=== PATIENT | female | born 1985 | race African-American/Black ===

== ENCOUNTER 2016-07-06 09:19 | Emergency (ER) | payer OTHER ==
[2016-07-06] MEDS ORDERED: FAMOTIDINE 20 MG/50 ML IVPB 50 ML IVPB ONE (09:46)
[2016-07-06] MEDS ORDERED: SUCRALFATE 1 GM TABLET (FP) PO ONE (09:46)
[2016-07-06] MEDS ORDERED: MAG HYDROX/AL HYDROX/SIMETH 30 ML UNIT-DOSE CUP PO ONE (09:46)
[2016-07-06] MEDS ORDERED: SODIUM CHLORIDE 1,000 ML IV STA (09:46)
[2016-07-06 09:49] VITALS: BMI 35.5
--- NOTE | 2016-07-06 10:06 | PDOC ---
History of Present Illness - History of Present Illness Initial Comments: 07/06/16 10:06 The patient is a 30 year old female, with a significant past medical history of heart murmur (diagnosed a few years ago), who presents to the emergency department with a sudden onset of chest pain that woke her from sleep at 8AM this morning. The patient reports the pain was sharp, localized to her midsternal region, 4/10 in severity, and shortly after radiated to her left collarbone region. The patient states her chest pain has been constant since the onset and reports her pain is now a 6/10 in severity. She reports having tooth #18 extracted on Thursday and has been taking Clindamycin for Abx and Tylenol-Codeine for pain. She states she felt completely well yesterday and reports only eating a beef maria guadalupe and one slice of a quesadilla. She denies any alleviating or exacerbating factors of her chest pain. She denies shortness of breath, headache and dizziness. She denies fever, chills , nausea, vomit, diarrhea and constipation. She denies dysuria, frequency, urgency and hematuria. Allergies: NKDA, peanuts, mushrooms Past surgical history: Social history: denies toxic habits PCP - Dr. Diaz <Cristina Crump - Last Filed: 07/06/16 13:20> - General History Source: Patient Exam Limitations: No Limitations <Pablo Morse - Last Filed: 07/06/16 14:17> - General Chief Complaint: Chest Pain Stated Complaint: CHEST PAIN Time Seen by Provider: 07/06/16 09:37 Past History <Cristina Crump - Last Filed: 07/06/16 13:20> - Past Medical History Anemia: No Asthma: No Cancer: No Cardiac Disorders: No CVA: No COPD: No CHF: No Dementia: No Diabetes: No GI Disorders: No Disorders: No HTN: No Hypercholesterolemia: No Liver Disease: No Seizures: No Thyroid Disease: Yes (ENLARGED THYROID) - Surgical History Abdominal Surgery: No Appendectomy: No Cardiac Surgery: No Cholecystectomy: No Lung Surgery: No Neurologic Surgery: No Orthopedic Surgery: No - Psycho/Social/Smoking Cessation Hx Anxiety: No Suicidal Ideation: No Smoking History: Never smoked Have you smoked in the past 12 months: No Information on smoking cessation initiated: No Hx Alcohol Use: No Drug/Substance Use Hx: No Substance Use Type: None Hx Substance Use Treatment: No <Pablo Morse - Last Filed: 07/06/16 14:17> - Past Medical History Allergies/Adverse Reactions: Allergies Allergy/AdvReac Type Severity Reaction Status Date / Time mushroom Allergy Verified 07/06/16 09:47 nuts Allergy Uncoded 07/06/16 09:47 Home Medications: Ambulatory Orders Famotidine [Pepcid] 20 mg PO BID PRN #20 tablet 07/06/16 Pantoprazole Sodium [Protonix] 40 mg PO DAILY #14 tablet. 07/06/16 Review of Systems - Review of Systems Able to Perform ROS?: Yes Comments:: 07/06/16 10:06 GENERAL/CONSTITUTIONAL: No fever or chills. No weakness. HEAD, EYES, EARS, NOSE AND THROAT: No change in vision. No ear pain or discharge. No sore throat. CARDIOVASCULAR: (+) chest pain. No shortness of breath. RESPIRATORY: No cough, wheezing, or hemoptysis. GASTROINTESTINAL: No nausea, vomiting, diarrhea or constipation. GENITOURINARY: No dysuria, frequency, or change in urination. MUSCULOSKELETAL: No joint or muscle swelling or pain. No neck or back pain. SKIN: No rash NEUROLOGIC: No headache, vertigo, loss of consciousness, or change in strength/ sensation. ENDOCRINE: No increased thirst. No abnormal weight change. HEMATOLOGIC/LYMPHATIC: No anemia, easy bleeding, or history of blood clots. ALLERGIC/IMMUNOLOGIC: No hives or skin allergy. <Cristina Crump - Last Filed: 07/06/16 13:20> *Physical Exam - Vital Signs Last Vital Signs Temp Pulse Resp BP Pulse Ox 98.3 F 75 18 126/82 97 07/06/16 09:25 07/06/16 09:25 07/06/16 09:25 07/06/16 09:25 07/06/16 09:25 - Physical Exam Comments: 07/06/16 10:07 GENERAL: Awake, alert, and fully oriented, in no acute distress HEAD: No signs of trauma EYES: PERRLA, EOMI, sclera anicteric, conjunctiva clear ENT: Auricles normal inspection, hearing grossly normal, nares patent, oropharynx clear without exudates. Moist mucosa NECK: Normal ROM, supple, no lymphadenopathy, JVD, or masses LUNGS: Breath sounds equal, clear to auscultation bilaterally. No wheezes, and no crackles HEART: Regular rate and rhythm, normal S1 and S2, no murmurs, rubs or gallops ABDOMEN: (+) obese, mildly ttp epigastric.Soft, normoactive bowel sounds. No guarding, no rebound. No masses EXTREMITIES: Normal range of motion, no edema. No clubbing or cyanosis. No cords, erythema, or tenderness NEUROLOGICAL: Cranial nerves II-XII intact. Normal speech, normal gait. Sensation intact in upper and lower extremities. 5/5 motor strength in upper and lower extremities. No pronator drift. Finger to nose intact. Rapid alternations intact. SKIN: Warm, Dry, normal turgor, no rashes or lesions noted. <Cristina Crump - Last Filed: 07/06/16 13:20> - Vital Signs Last Vital Signs Temp Pulse Resp BP Pulse Ox 98.3 F 75 18 126/82 97 07/06/16 09:25 07/06/16 09:25 07/06/16 09:25 07/06/16 09:25 07/06/16 09:25 <Pablo Morse - Last Filed: 07/06/16 14:17> Heart Score/ECG Review - History History: Slightly suspicious - Electrocardiogram EKG: Non specific repolarization disturbance - Age Age: </= 45 - Risk Factors Risk Factors Heart Score: Yes Hx Obesity Based on the list above the patient has:: 1-2 risk factors - Troponin Troponin: </= normal limit - Score Heart Score - Total: 2 #1 ECG reviewed & interpreted by me at: 09:30 07/06/16 09:57 NSR 63 1st degree AV block, no std/jacey, Q wave V1-V2, QTC 419 msec. no prior to compare to <Pablo Morse - Last Filed: 07/06/16 14:17> ED Treatment Course - LABORATORY CBC & Chemistry Diagram: 07/06/16 10:02 07/06/16 10:02 - RADIOLOGY Radiograph Interpretation: 07/06/16 13:20 CXR was read by Dr. Sainz at 12:18 Impression: Weak inspiration with resultant central crowding and large heart. No acute chest pathology appreciated. <Cristina Crump - Last Filed: 07/06/16 13:20> - LABORATORY CBC & Chemistry Diagram: 07/06/16 10:02 07/06/16 10:02 - RADIOLOGY Radiology Studies Ordered: Category Date Time Status CHEST PA & LAT [RAD] Stat Radiology 07/06/16 09:47 Ordered <Pablo Morse - Last Filed: 07/06/16 14:17> Medical Decision Making - Medical Decision Making 07/06/16 09:58 A portion of this note was documented by scribe services under my direction. I have reviewed the details of the note, within reason, and agree with the documentation with the following case summary and management plan written by me. Patient treated in the ED. Nursing notes are reviewed and incorporated into the medical decision-making. Vital signs reviewed. Peripheral IV access obtained by the nurse, laboratory studies are drawn and sent, reviewed and interpreted by myself. Vital Signs Temp Pulse Resp BP Pulse Ox 98.3 F 75 18 126/82 97 07/06/16 09:25 07/06/16 09:25 07/06/16 09:25 07/06/16 09:25 07/06/16 09:25 30-year-old female with past medical history of obesity presents with chest pain. The patient had recently had tooth 18 pulled out and was placed on clindamycin and Tylenol with codeine. Yesterday, patient ate beef maria guadalupe and went to sleep. Woke up this morning with chest tightness and shortness of breath that was constant. Not exertional. Not nauseous or vomiting. Patient has some epigastric discomfort. The EKG demonstrates a Q wave in V1 and V2 with no prior EKG changes. However, my clinical sense is that the patient is likely having atypical chest pain secondary to gastritis. Patient also has epigastric pain. However, given the Q waves, we'll send two troponins to rule out MS. We'll treat as GERD in the meantime. Labs, chest x-ray, reassess. 07/06/16 14:12 CBC, BMP 07/06/16 10:02 07/06/16 10:02 CMP Sodium 140 mmol/L (136-145) 07/06/16 10:02 Potassium 3.9 mmol/L (3.5-5.1) 07/06/16 10:02 Chloride 103 mmol/L (98-107) 07/06/16 10:02 Carbon Dioxide 25 mmol/L (21-32) 07/06/16 10:02 Anion Gap 12 (8-16) 07/06/16 10:02 BUN 15 mg/dL (7-18) 07/06/16 10:02 Creatinine 0.8 mg/dL (0.55-1.02) 07/06/16 10:02 Creat Clearance w eGFR > 60 (>60) 07/06/16 10:02 Random Glucose 97 mg/dL (74-106) 07/06/16 10:02 Calcium 8.6 mg/dL (8.5-10.1) 07/06/16 10:02 Total Bilirubin 0.3 mg/dL (0.2-1.0) 07/06/16 10:02 AST 15 U/L (15-37) D 07/06/16 10:02 ALT 20 U/L (12-78) 07/06/16 10:02 Alkaline Phosphatase 55 U/L (45-117) 07/06/16 10:02 Creatine Kinase 125 IU/L (26-192) 07/06/16 13:00 Troponin I < 0.02 ng/ml (0.00-0.05) 07/06/16 13:00 Total Protein 7.0 g/dl (6.4-8.2) 07/06/16 10:02 Albumin 4.0 g/dl (3.4-5.0) 07/06/16 10:02 Lipase 163 U/L (73-393) 07/06/16 10:02 Serum , Qual Negative 07/06/16 10:02 Trop two negative. Pt reports feeling much better with the GERD medications Will give her referral to cardiology for the chest xray and ECG. Discharge diagnosis: gastritis I discussed the physical exam findings, ancillary test results and final diagnoses with the patient. I answered all of the patient's questions. The patient was satisfied with the care received and felt comfortable with the discharge plan and treatment plan. The patient will call their primary care physician within 24 hours to arrange follow-up and will return to the Emergency Department with any new, persistant or worsening symptoms. <Pablo Morse - Last Filed: 07/06/16 14:17> *DC/Admit/Observation/Transfer - Attestations Scribe Attestion: 07/06/16 10:07 Documentation prepared by Cristina Crump, acting as medical device sales consultant for Pablo Morse MD <Cristina Crump - Last Filed: 07/06/16 13:20> - Discharge Dispostion Admit: No <Pablo Morse - Last Filed: 07/06/16 14:17> Diagnosis at time of Disposition: Atypical chest pain GERD (gastroesophageal reflux disease) Qualifiers: Esophagitis presence: esophagitis presence not specified Qualified Code(s): K21.9 - Gastro-esophageal reflux disease without esophagitis - Discharge Dispostion Disposition: HOME Condition at time of disposition: Improved - Prescriptions Prescriptions: Famotidine [Pepcid] 20 mg PO BID PRN #20 tablet PRN Reason: GERD Pantoprazole Sodium [Protonix] 40 mg PO DAILY #14 tablet.dr - Referrals Referrals: Kings Diaz MD [Primary Care Provider] - Chintan Arellano MD [Staff Physician] - Earl Sullivan MD [Staff Physician] - Jose Cruz Curran MD [Staff Physician] - - Patient Instructions Printed Discharge Instructions: DI for Atypical Chest Pain, DI for Gastroesophageal Reflux Disease (GERD) Additional Instructions: You have had two negative troponins. For your EKG, please follow up with a piece jobber. Call to schedule an appointment. Follow up with your doctor. Take 40 mg protonix daily. For additional relief, you may take a 20 mg pepcid every 12 hours as needed for acid reflux.
[2016-07-06 10:45] LABS: BASOPHIL 0.6 % (0-2.0); EOSINOPHIL 1.1 % (0-4.5); MCH 30.9 pg (25.7-33.7); MEAN CELL VOLUME 91.1 fl (80-96); MEAN PLT VOLUME 9.2 fl (7.5-11.1); NEUTROPHILS 58.7 % (42.8-82.8); PLATELET COUNT 323 K/MM3 (134-434); RDW 13.8 % (11.6-15.6); WHITE BLOOD COUNT 9.8 K/mm3 (4.0-10.0)
[2016-07-06 11:09] LABS: ANION GAP 12 (8-16); BILIRUBIN,TOTAL 0.3 mg/dL (0.2-1.0); CALCIUM 8.6 mg/dL (8.5-10.1); CO2 25 mmol/L (21-32); CREATININE 0.8 mg/dL (0.55-1.02); GLUCOSE,RANDOM 97 mg/dL (74-106); SGOT/AST 15 U/L (15-37); SGPT/ALT 20 U/L (12-78)
[2016-07-06 11:12] LABS: ALK PHOS 55 U/L (45-117); TROPONIN I < 0.02 ng/ml (0.00-0.05)
[2016-07-06] MEDS ORDERED: PANTOPRAZOLE SODIUM 40 MG in SODIUM CHLORIDE 100 ML IVPB ONE (11:14)
[2016-07-06 14:02] LABS: TROPONIN I < 0.02 ng/ml (0.00-0.05)
[2016-07-06 14:49] VITALS: BP 132/70; PULSE 79; TEMP 97.3
--- NOTE | 2016-07-07 10:37 | EKG ---
Test Reason : Blood Pressure : / mmHG Vent. Rate : 063 BPM Atrial Rate : 063 BPM P-R Int : 210 ms QRS Dur : 076 ms QT Int : 410 ms P-R-T Axes : 064 036 042 degrees QTc Int : 419 ms SINUS RHYTHM WITH 1ST DEGREE A-V BLOCK POSSIBLE LEFT ATRIAL ENLARGEMENT CANNOT RULE OUT SEPTAL INFARCT , AGE UNDETERMINED ABNORMAL ECG NO PREVIOUS ECGS AVAILABLE Confirmed by RONDA QUINTANILLA MD ([id number]) on 07/07/2016 10:37:41 AM Referred By: Confirmed By:RONDA QUINTANILLA MD
== END 2016-07-06 14:49 | disposition home or self-care (01) ==
LOC: JER 09:19
PROC: 3E033GC Introduction of Other Therapeutic Substance into Peripheral Vein, Percutaneous Approach (ICD-10-PCS; principal; 2016-07-06)
PROC: 3E033GC Introduction of Other Therapeutic Substance into Peripheral Vein, Percutaneous Approach (ICD-10-PCS; 2016-07-06)
DX: K29.70 Gastritis, unspecified, without bleeding (principal); K21.9 Gastro-esophageal reflux disease without esophagitis
CPT/HCPCS: 36415; 71020-TC; 80053; 82550; 83690; 84484; 84703; 85025; 93005; 93010; 96365; 96367; 99284-25

== ENCOUNTER 2017-12-17 23:37 | Emergency (ER) | payer OTHER ==
[2017-12-17 23:51] VITALS: BP 133/87; PULSE 90; TEMP 98.1; BMI 35.4
[2017-12-18] MEDS ORDERED: IBUPROFEN 400 MG TABLET (FP) PO ONE ×2 (00:58→01:35)
--- NOTE | 2017-12-18 01:01 | PDOC ---
History of Present Illness <Constanza Carter - Last Filed: 12/18/17 01:51> - History of Present Illness Initial Comments: 12/18/17 00:58 Patient walking on jagged sidewalk when she fell onto hands and feet felt "fine" was able to ambulate after the fall, but started noticing pain in the R foot several hours ago after work No past medical history +R foot cuboid bone point tenderness, FROM, palpable pulses, normal sensation reports normally having "swollen feet" <Sujey Pickett - Last Filed: 12/18/17 02:04> - General Chief Complaint: Injury Stated Complaint: RT FOOT INJURY Time Seen by Provider: 12/18/17 00:49 Past History <Constanza Carter - Last Filed: 12/18/17 01:51> - Past Medical History Anemia: No Asthma: No Cancer: No Cardiac Disorders: No CVA: No COPD: No CHF: No Dementia: No Diabetes: No GI Disorders: No Disorders: No HTN: No Hypercholesterolemia: No Liver Disease: No Seizures: No Thyroid Disease: Yes (ENLARGED THYROID) - Surgical History Abdominal Surgery: No Appendectomy: No Cardiac Surgery: No Cholecystectomy: No Lung Surgery: No Neurologic Surgery: No Orthopedic Surgery: No - Suicide/Smoking/Psychosocial Hx Smoking History: Never smoked Have you smoked in the past 12 months: No Information on smoking cessation initiated: No Hx Alcohol Use: No Drug/Substance Use Hx: No Substance Use Type: None Hx Substance Use Treatment: No <Sujey Pickett - Last Filed: 12/18/17 02:04> - Past Medical History Allergies/Adverse Reactions: Allergies Allergy/AdvReac Type Severity Reaction Status Date / Time mushroom Allergy Verified 07/06/16 09:47 nuts Allergy Uncoded 07/06/16 09:47 Home Medications: Ambulatory Orders Famotidine [Pepcid] 20 mg PO BID PRN #20 tablet 07/06/16 Pantoprazole Sodium [Protonix] 40 mg PO DAILY #14 tablet. 07/06/16 *Physical Exam - Vital Signs Last Vital Signs Temp Pulse Resp BP Pulse Ox 98.1 F 90 20 133/87 100 12/17/17 23:45 12/17/17 23:45 12/17/17 23:45 12/17/17 23:45 12/17/17 23:45 <Constanza Carter - Last Filed: 12/18/17 01:51> - Vital Signs Last Vital Signs Temp Pulse Resp BP Pulse Ox 98.1 F 90 20 133/87 100 12/17/17 23:45 12/17/17 23:45 12/17/17 23:45 12/17/17 23:45 12/17/17 23:45 <Sujey Pickett - Last Filed: 12/18/17 02:04> ED Treatment Course - Medications Given in the ED: ED Medications Discontinued Medications Generic Name Dose Route Start Last Admin Trade Name Faiza PRN Reason Stop Dose Admin Ibuprofen 400 mg 12/18/17 00:58 12/18/17 01:43 Motrin - PO 12/18/17 00:59 400 mg ONCE ONE Administration <Constanza Carter - Last Filed: 12/18/17 01:51> - RADIOLOGY Radiology Studies Ordered: Category Date Time Status FOOT-RIGHT [RAD] Stat Radiology 12/18/17 00:56 Ordered <Sujey Pickett - Last Filed: 12/18/17 02:04> Medical Decision Making - Medical Decision Making 12/18/17 01:01 DDX: fracture vs dislocation vs sprain TX: Motrin for now. <Sujey Pickett - Last Filed: 12/18/17 02:04> *DC/Admit/Observation/Transfer - Discharge Dispostion Decision to Admit order: No <Constanza Carter - Last Filed: 12/18/17 01:51> - Discharge Dispostion Decision to Admit order: No <Sujey Pickett - Last Filed: 12/18/17 02:04> Diagnosis at time of Disposition: Right foot pain, Foot fracture, right - Discharge Dispostion Disposition: HOME Condition at time of disposition: Stable - Referrals Referrals: Darvin Menendez MD [Non Staff, Medical] - Kings Diaz MD [Primary Care Provider] - Michael Espitia MD [Staff Physician] - - Patient Instructions Printed Discharge Instructions: How to Use Crutches, DI for Foot Fracture, DI for Foot Pain Additional Instructions: You were seen in the ED for complaints of R foot pain after a fall. In the ED you were evaluated with imaging. Your xray shows a small broken bone and you were placed in a splint. There does not appear to be an acute need for immediate hospitalization. You are advised to follow up with your Primary Care Physician within 1 week. You were given a referral to Orthopedics and advised to follow up within 1 week. Remember to rest, ice, elevate and compress the foot and ankle. Take over the counter ibuprofen for pain relief. Return to the ED immediately if you experience worsening pain in the R foot, numbness or tingling in the R foot, excessive swelling, inability to bare weight on the foot. - Post Discharge Activity Forms/Work/School Notes: Back to Work
--- NOTE | 2017-12-18 01:12 | PDOC ---
Attending Attestation - HPI HPI: 12/18/17 01:40 The patient is a 32 year old female with no significant past medical history who presents to the ED s/p fall earlier today. Patient states she was walking when she tripped over the sidewalk and landed on her hands and knees. She states her right foot got caught between the sidewalk. She reports pain and swelling to the outside of her right foot. She is able to ambulate with pain. Denies ankle swelling/pain. Denies knee pain. Denies loss of consciousness. Denies lightheadedness or dizziness. Denies any other symptoms. - Physicial Exam PE: 12/18/17 01:41 Constitutional: Awake, alert, oriented. No acute distress. Head: Normocephalic. Atraumatic Eyes: PERRL. EOMI. Conjunctivae are not pale. ENT: Mucous membranes are moist and intact. Posterior pharynx without exudates or erythema. Uvula midline. Neck: Supple. Full ROM. No lymphadenopathy. Cardiovascular: Regular rate. Regular rhythm. S1, S2 regular. Distal pulses are 2+ and symmetric. Pulmonary/Chest: No evidence of respiratory distress. Clear to auscultation bilaterally No wheezing, rales or rhonchi. Abdominal: Soft and non-distended. There is no tenderness. No rebound, guarding or rigidity. No organomegaly. No palpable masses. Good bowel sounds. Back: No CVA tenderness. Musculoskeletal: + Mild bony tenderness over the right 4th metatarsal bone. No edema. No cyanosis. No clubbing. Full range of motion in all extremities. Nocalf tenderness. Radial/pedal pulses are intact and 2+ bilaterally Skin: Skin is warm and dry. No petechiae. No purpura. Neurological: Alert and oriented to person, place, and time. Cranial nerves II -XII are grossly intact. Normal speech. Strength is grossly symmetric. No sensory deficits. Psychiatric: Good eye contact. Normal interaction, affect and behavior. <Milton Lamar - Last Filed: 12/18/17 01:40> - Resident Resident Name: Sujey Pickett - ED Attending Attestation I have performed the following: I have examined & evaluated the patient, The case was reviewed & discussed with the resident, I agree w/resident's findings & plan, Exceptions are as noted - Medical Decision Making 12/18/17 01:12 I, Dr. Constanza Carter, DO, attest that this document has been prepared under my direction and personally reviewed by me in its entirety. I further attest, that it accurately reflects all work, treatment, procedures and medical decision -making performed by me. 12/18/17 01:53 a/p: 32yo female with R foot pain after a mechanical trip and fall earlier tonight. -mild soft tissue swelling to dorsal aspect of the foot -will send ucg -will give motrin -will xray R foot 12/18/17 01:58 pt with small fracture to foot -will place in a splint and recommend ortho follow up will give crutches <Constanza Carter - Last Filed: 12/18/17 01:58> Attestations - Attestations 12/18/17 01:41 Documentation prepared by Milton Lamar, acting as medical accounting clerk for Constanza Carter DO <Milton Lamar - Last Filed: 12/18/17 01:40>
== END 2017-12-18 02:46 | disposition home or self-care (01) ==
LOC: JER 23:37
PROC: 2W3QX1Z Immobilization of Right Lower Leg using Splint (ICD-10-PCS; principal; 2017-12-17)
DX: S92.901A Unspecified fracture of right foot, initial encounter for closed fracture (principal); W18.39XA Other fall on same level, initial encounter; Y93.01 Activity, walking, marching and hiking; Y92.480 Sidewalk as the place of occurrence of the external cause; Y99.8 Other external cause status
CPT/HCPCS: 73630-TC-RT-FY; 84703; 99281-25

== ENCOUNTER 2019-02-07 16:45 | Emergency (ER) | payer OTHER ==
--- NOTE | 2019-02-07 17:17 | PDOC ---
Rapid Medical Evaluation Time Seen by Provider: 02/07/19 17:13 Medical Evaluation: Allergies Allergy/AdvReac Type Severity Reaction Status Date / Time mushroom Allergy Verified 07/06/16 09:47 nuts Allergy Uncoded 07/06/16 09:47 02/07/19 17:13 This patient received a in-person evaluation in triage cc/HPI: runny and stuffy nose with coughing and scratchy throat x 5 days reports intermittent cold symptoms since thanksgiving, taking nyquil and dayquil PE: NAD HEENT: runny nose in triage, nasal congestion Lungs: clear bilaterally orders:urine This patient will proceed to ED for further evaluation Discharge Disposition - Diagnosis Sinusitis - Discharge Dispostion Disposition: HOME Condition at time of disposition: Stable - Prescriptions Prescriptions: Amox-Tr/K Cl [Augmentin - 875Mg Tablet] 1 tab PO BID #20 tablet Budesonide [Rhinocort Allergy] 1 spray NS ONCE #1 spray.pump Fluconazole [Diflucan] 150 mg PO ONCE #1 tablet - Referrals Referrals: Kings Diaz MD [Primary Care Provider] - Mello Foster MD [Staff Physician] - - Patient Instructions Additional Instructions: Please use the medication as directed and take the antibiotics and finish the entire course. Return to the emergency room for worsening symptoms. Without fail please follow-up with ear nose and throat doctor in 1 to 2 days for further evaluation and treatment options. - Post Discharge Activity
[2019-02-07 17:18] VITALS: BP 113/76; PULSE 94; TEMP 97.7; BMI 35.5
--- NOTE | 2019-02-07 18:12 | PDOC ---
History of Present Illness - General Chief Complaint: Cold Symptoms Stated Complaint: COLD SYX Time Seen by Provider: 02/07/19 17:13 - History of Present Illness Initial Comments: 02/07/19 18:10 33-year-old female without comorbidities presents for upper respiratory symptoms x3 weeks no fevers Past History - Past Medical History Allergies/Adverse Reactions: Allergies Allergy/AdvReac Type Severity Reaction Status Date / Time mushroom Allergy Verified 02/07/19 17:14 nuts Allergy Uncoded 02/07/19 17:14 Home Medications: Ambulatory Orders Famotidine [Pepcid] 20 mg PO BID PRN #20 tablet 07/06/16 Pantoprazole Sodium [Protonix] 40 mg PO DAILY #14 tablet. 07/06/16 Amox-Tr/K Cl [Augmentin - 875Mg Tablet] 1 tab PO BID #20 tablet 02/07/19 Budesonide [Rhinocort Allergy] 1 spray NS ONCE #1 spray.pump 02/07/19 Fluconazole [Diflucan] 150 mg PO ONCE #1 tablet 02/07/19 Anemia: No Asthma: No Cancer: No Cardiac Disorders: No CVA: No COPD: No CHF: No Dementia: No Diabetes: No GI Disorders: No Disorders: No HTN: No Hypercholesterolemia: No Liver Disease: No Seizures: No Thyroid Disease: Yes (ENLARGED THYROID) - Surgical History Abdominal Surgery: No Appendectomy: No Cardiac Surgery: No Cholecystectomy: No Lung Surgery: No Neurologic Surgery: No Orthopedic Surgery: No - Immunization History Immunization Up to Date: Yes - Psycho Social/Smoking Cessation Hx Smoking History: Never smoked Have you smoked in the past 12 months: No Hx Alcohol Use: No Drug/Substance Use Hx: No Substance Use Type: None Hx Substance Use Treatment: No Review of Systems - Review of Systems Constitutional: No: Fever HEENTM: Yes: Nose Congestion *Physical Exam - Vital Signs Last Vital Signs Temp Pulse Resp BP Pulse Ox 97.7 F 94 H 18 113/76 98 02/07/19 17:14 02/07/19 17:14 02/07/19 17:14 02/07/19 17:14 02/07/19 17:14 - Physical Exam 02/07/19 18:11 GENERAL: The patient is awake, alert, and fully oriented, in no acute distress. HEAD: Normal with no signs of trauma. EYES: sclera anicteric, conjunctiva clear. ENT: Ears normal tympanic membranes normal oropharynx clear uvula midline NECK: Normal range of motion LUNGS: Breath sounds equal, clear to auscultation bilaterally. No wheezes, and no crackles. HEART: S1 and S2 without murmur, rub or gallop. ABDOMEN: Soft, nontender, normoactive bowel sounds. No guarding, no rebound. No masses. EXTREMITIES: Normal range of motion, no edema. No clubbing or cyanosis. No cords, erythema, or tenderness. NEUROLOGICAL: Cranial nerves II through XII grossly intact. Normal speech, normal gait. PSYCH: Normal mood, normal affect. SKIN: Warm, Dry, normal turgor, no rashes or lesions noted. Medical Decision Making - Medical Decision Making 02/07/19 18:11 Tender maxillary sinuses will treat for bacterial sinusitis follow-up with ENT Discharge - Discharge Information Problems reviewed: Yes Clinical Impression/Diagnosis: Sinusitis Condition: Stable Disposition: HOME - Admission No - Additional Discharge Information Prescriptions: Amox-Tr/K Cl [Augmentin - 875Mg Tablet] 1 tab PO BID #20 tablet Budesonide [Rhinocort Allergy] 1 spray NS ONCE #1 spray.pump Fluconazole [Diflucan] 150 mg PO ONCE #1 tablet - Follow up/Referral Referrals: Kings Diaz MD [Primary Care Provider] - Mello Foster MD [Staff Physician] - - Patient Discharge Instructions Additional Instructions: Please use the medication as directed and take the antibiotics and finish the entire course. Return to the emergency room for worsening symptoms. Without fail please follow-up with ear nose and throat doctor in 1 to 2 days for further evaluation and treatment options. - Post Discharge Activity
== END 2019-02-07 18:52 | disposition home or self-care (01) ==
LOC: JERFT 16:45
DX: J32.9 Chronic sinusitis, unspecified (principal); Z91.018 Allergy to other foods
CPT/HCPCS: 84703; 99282-25